=== PATIENT | female | born 1975 | race Two or more races ===

== ENCOUNTER 2020-12-23 09:59 | Outpatient (CLI) | payer OTHER ==
[~2020-12-23 09:59] MED LIST: KETO10TA2 PO; LEVAQUIN750 MG PO; ORPH100T PO; PRENATAL CAPLE1 EACH PO; SYNTHROID100 MCG PO; [UNRECOGNIZED DRUG - OTHER] IM
== END 2020-12-23 10:09 | disposition home or self-care (01) ==
LOC: SONOGRAMA 09:59 → MAMO-SONO 10:00 → SONOGRAMA 10:09
PROVIDERS: ATTEND Podiatrist Foot Surgery
DX: M71.571 Other bursitis, not elsewhere classified, right ankle and foot (principal)

== ENCOUNTER 2021-10-04 09:05 | Outpatient (CLI) | payer OTHER | END 2021-10-04 09:18 | disposition home or self-care (01) | LOC: SONOGRAMA 09:05 | PROVIDERS: ATTEND Obstetrics & Gynecology Maternal & Fetal Medicine | DX: E04.1 Nontoxic single thyroid nodule (principal) ==

== ENCOUNTER 2024-05-23 08:49 | Outpatient (CLI) | payer OTHER | END 2024-05-23 09:05 | disposition home or self-care (01) | LOC: TOM 08:49 | DX: J32.0 Chronic maxillary sinusitis (principal) ==